=== PATIENT | male | born 1960 | race Caucasian/White ===

== ENCOUNTER 2019-03-17 09:50 | Observation (INO) | payer OTHER ==
[~2019-03-17] VITALS: Ht 180.3 cm; Wt 100.0 kg
[2019-03-17] MEDS ORDERED: SODIUM CHLORIDE 0.9% 1,000 ML IV ONE (09:55)
[2019-03-17] MEDS ORDERED: SODIUM CHLORIDE 0.9% 1,000ML IVBOLUS ONE (10:00)
[2019-03-17] MEDS ORDERED: SODIUM CHLORIDE FLUSH 10ML SYR IVF ONE (10:00)
[2019-03-17] MEDS ORDERED: AMLO10TA8 PO (10:03)
[2019-03-17] MEDS ORDERED: ATOR40TA78 PO (10:03)
[2019-03-17] MEDS ORDERED: HYDR-3343 PO (10:03)
[2019-03-17] MEDS ORDERED: FURO20TA3 PO (10:03)
[2019-03-17] MEDS ORDERED: VIT D PO (10:03)
[2019-03-17] MEDS ORDERED: LISI-167 PO (10:03)
--- NOTE | 2019-03-17 10:14 | NUR ---
pt [facility] from where he was diagnosed today with Flu A. pt experienced syncopal episode for approx 2-3 seconds at while ambulating to . pt was caught by staff and assisted to floor. no trauma noted. pt's sbp was found to be in the low 90s. upon ems arrival, pt's sbp was in the 60s. piv established and 4mg zofran and 1l ns administered with sbp recovery to high 80s. pt connected to all monitors upon arrival to [facility]. sbp low 90s. Dr. Rodriguez to bs for assessment and orders received. 1l ns and ivf started. lab to bs for draw. ekg complete. awaiting results. no needs expressed. call light within reach.
[2019-03-17 10:35] LABS: BASOPHILS # (AUTO) 0.02 x10^3/uL (0-0.1); BASOPHILS % (AUTO) 0 % (0-1); EOSINOPHILS # (AUTO) 0.09 x10^3/uL (0-0.4); EOSINOPHILS % (AUTO) 1 % (1-7); LYMPHOCYTES % (AUTO) 11 % (22-44); MD NO; MEAN CORPUSCULAR HEMOGLOBIN 30.6 pg (27.5-34.5); MEAN CORPUSCULAR HGB CONC 33.2 g/dL (33.2-36.2); MEAN PLATELET VOLUME 8.1 fL (7.4-10.4); MONOCYTES # (AUTO) 0.99 x10^3/uL (0.2-0.8); MONOCYTES % (AUTO) 12 % (2-9); NEUTROPHILS # (AUTO) 5.99 x10^3/uL (1.8-6.8); NEUTROPHILS % (AUTO) 75 % (42-75); PLATELET COUNT 247 x10^3/uL (130-400); RED BLOOD COUNT 4.42 x10^6/uL (4.38-5.82); RED CELL DISTRIBUTION WIDTH 13.4 % (9.4-14.8)
[2019-03-17 10:41] LABS: ALBUMIN 3.3 g/dL (3.4-5.0); ANION GAP 8 mmol/L (5-15); CALCIUM 8.1 mg/dL (8.5-10.1); CHLORIDE 109 mmol/L (98-107)
[2019-03-17 10:46] LABS: ALANINE AMINOTRANSFERASE 43 U/L (12-78); ALKALINE PHOSPHATASE 82 U/L (45-117); BILIRUBIN,TOTAL 0.5 mg/dL (0.2-1.0); CREATININE 2.13 mg/dL (0.7-1.3); TOTAL PROTEIN 6.9 g/dL (6.4-8.2); TROPONIN I < 0.015 ng/mL (0.000-0.045)
--- NOTE | 2019-03-17 10:52 | NUR ---
pt back from xr at this time. vss. warm blanket provided for comfort. no other needs expressed. call light within reach. awaiting results.
--- NOTE | 2019-03-17 11:17 | NUR ---
ALL RESULTS BACK AT THIS TIME. CHART UP FOR RECHECK.
--- NOTE | 2019-03-17 11:21 | NUR ---
PT RESTING IN ROOM. VS IMPROVING. DR. HUBBARD TO BS FOR ASSESSMENT. PLANT O ADMIT. AWAITING ROOM ASSIGNMENT.
[2019-03-17] MEDS ORDERED: LABETALOL 5MG/ML, 20ML IVPush PRN (12:00)
[2019-03-17] MEDS ORDERED: GUAIFENESIN/DM 200-20MG, 10ML UDC PO PRN (12:00)
[2019-03-17] MEDS ORDERED: ACETAMINOPHEN 325 MG TABLET PO PRN (12:00)
[2019-03-17] MEDS ORDERED: CHOLECALCIFEROL 5,000u TAB PO SCH (12:00)
[2019-03-17] MEDS ORDERED: ONDANSETRON ODT 4 MG PO PRN (12:00)
[2019-03-17] MEDS ORDERED: ONDANSETRON 2MG/ML, 2ML IVPush PRN (12:00)
[2019-03-17] MEDS ORDERED: TRAZODONE 50MG TABLET PO PRN (12:00)
[2019-03-17] MEDS ORDERED: BUTALB/APAP/CAFFEINE 50MG/325MG/40MG PO PRN ×2 (12:00)
[2019-03-17] MEDS ORDERED: POLYETHYLENE GLYCOL 17 GM PACKET PO PRN (12:00)
[2019-03-17] MEDS ORDERED: hydrALAzine 20 MG/ML, 1ML IVPush PRN (12:00)
--- NOTE | 2019-03-17 12:23 | NUR ---
PT RESTING IN ROOM. VSS. HOSPITALIST TO BS FOR ASSESSMENT. AWAITING FURTHER ORDERS.
[2019-03-17] MEDS ORDERED: OSELTAMIVIR 75 MG CAPSULE ONE (12:27)
[2019-03-17] MEDS: OSELTAMIVIR 75 MG CAPSULE PO SCH (12:49)
[2019-03-17] MEDS: LACTATED RINGERS 1,000 ML IV SCH ×2 (12:50→16:43)
--- NOTE | 2019-03-17 12:54 | NUR ---
PT MEDICATED PER MAR. VSS. PT DECLINING LUNCH TRAY AT THIS TIME. NO NEEDS EXPRESSED AT THIS TIME. AWAITING ROOM ASSIGNMENT.
--- NOTE | 2019-03-17 15:19 | NUR ---
ASSUMED CARE FOR THIS PT. REPORT CALLED TO FLOOR PT READY FOR TRANSPORT.
[2019-03-17 15:57] VITALS: BP 124/74
[2019-03-17 20:15] VITALS: BP 131/74
[2019-03-17] MEDS ORDERED: AMLODIPINE 5 MG TABLET PO SCH (21:00)
[2019-03-17] MEDS ORDERED: ATORVASTATIN 40 MG TABLET PO SCH (21:00)
[2019-03-17] MEDS ORDERED: LISINOPRIL 20 MG TABLET PO SCH (21:00)
[2019-03-18 03:47] VITALS: BP_SYST 121; BP_DIAS 65; BP_DIAS 68
[2019-03-18 05:05] LABS: ANION GAP 6 mmol/L (5-15); CALCIUM 8.4 mg/dL (8.5-10.1); CHLORIDE 109 mmol/L (98-107); CREATININE 1.38 mg/dL (0.7-1.3)
[2019-03-18 05:08] LABS: BASOPHILS # (AUTO) 0.04 x10^3/uL (0-0.1); BASOPHILS % (AUTO) 1 % (0-1); EOSINOPHILS # (AUTO) 0.13 x10^3/uL (0-0.4); EOSINOPHILS % (AUTO) 2 % (1-7); LYMPHOCYTES # (AUTO) 1.58 x10^3/uL (1-3.4); LYMPHOCYTES % (AUTO) 27 % (22-44); MD NO; MEAN CORPUSCULAR HEMOGLOBIN 30.4 pg (27.5-34.5); MEAN CORPUSCULAR HGB CONC 33.1 g/dL (33.2-36.2); MEAN PLATELET VOLUME 8.1 fL (7.4-10.4); MONOCYTES # (AUTO) 0.92 x10^3/uL (0.2-0.8); MONOCYTES % (AUTO) 16 % (2-9); NEUTROPHILS # (AUTO) 3.21 x10^3/uL (1.8-6.8); NEUTROPHILS % (AUTO) 55 % (42-75); PLATELET COUNT 221 x10^3/uL (130-400); RED BLOOD COUNT 4.17 x10^6/uL (4.38-5.82); RED CELL DISTRIBUTION WIDTH 13.7 % (9.4-14.8)
[2019-03-18 07:40] VITALS: BP 115/73
[2019-03-18] MEDS ORDERED: FUROSEMIDE 40 MG TABLET PO SCH (09:00)
[2019-03-18] MEDS: OSELTAMIVIR 75 MG CAPSULE PO SCH (09:54)
[2019-03-18 13:08] VITALS: BP 114/67
[2019-03-18] MEDS ORDERED: GUAIFENESIN 200 MG TABLET PO PRN (15:00)
[2019-03-18] MEDS ORDERED: SODIUM CHLORIDE 0.9% 1,000 ML IV SCH (15:00)
[2019-03-18 17:01] VITALS: BP 133/70
[2019-03-18 17:06] VITALS: BP 129/68
[2019-03-18 17:11] VITALS: BP 124/69
== END 2019-03-18 20:00 | disposition left against medical advice (07) ==
LOC: ED 11:46 → EDIP 11:50 → INTOOBSV 11:50 → 3N 15:52
PROVIDERS: ADMIT Family Medicine; ATTEND Hospitalist
DX: R55 Syncope and collapse (principal); J96.01 Acute respiratory failure with hypoxia; E78.5 Hyperlipidemia, unspecified; I12.9 Hypertensive chronic kidney disease with stage 1 through stage 4 chronic kidney disease, or unspecified chronic kidney disease; J10.1 Influenza due to other identified influenza virus with other respiratory manifestations; N17.9 Acute kidney failure, unspecified; N18.9 Chronic kidney disease, unspecified; I95.9 Hypotension, unspecified; E83.51 Hypocalcemia; E87.8 Other disorders of electrolyte and fluid balance, not elsewhere classified; E46 Unspecified protein-calorie malnutrition; Z79.899 Other long term (current) drug therapy
CPT/HCPCS: 36415; 71046; 80048; 80053; 83735; 84100; 84484; 85025; 93005; 96360; 96361; 99284; G0378; J7030; J7120

== ENCOUNTER 2020-08-18 13:16 | Emergency (ER) | payer OTHER ==
[~2020-08-18] VITALS: Ht 180.3 cm; Wt 100.0 kg
[~2020-08-18 13:16] MED LIST: AMLO-211 PO; ATOR40TA78 PO; FURO20TA3 PO; HYDR-3343 PO; LISI-167 PO; VIT D PO
--- NOTE | 2020-08-18 13:35 | NUR ---
PT CLOTHING REMOVED AND PT IN HOSPITAL GOWN. PT PLACED ON VITALS MONITORS.
[2020-08-18] MEDS ORDERED: MORPHINE SULFATE 4 MG/ML, 1ML ONE ×2 (14:29→15:31)
[2020-08-18] MEDS: MORPHINE SULFATE 4 MG/ML, 1ML IVPush PRN ×2 (14:32→15:34)
--- NOTE | 2020-08-18 14:40 | NUR ---
PT MEDICATED FOR PAIN PER EMAR. PT HERE, WILL BE A SAFE RIDE HOME FOR PT PT IS AWARE, HE CAN NOT DRIVE HOME AFTER MEDS.
[2020-08-18 15:00] VITALS: BP 118/74
[2020-08-18] MEDS ORDERED: DIAZEPAM 5 MG/ML, 2ML ONE (15:13)
[2020-08-18] MEDS ORDERED: DIAZEPAM 5 MG/ML, 2ML IV ONE (15:30)
--- NOTE | 2020-08-18 17:31 | NUR ---
PT HERE TO WHEEL PT OUT TO DC. PT ABLE TO REST CALMLY IN BED, STATED HE IS FEELING BETTER AFTER ORDERED MEDS.
== END 2020-08-18 17:31 | disposition home or self-care (01) ==
LOC: ED 14:00
DX: S32.010A Wedge compression fracture of first lumbar vertebra, initial encounter for closed fracture (principal); R11.0 Nausea; I11.0 Hypertensive heart disease with heart failure; I12.9 Hypertensive chronic kidney disease with stage 1 through stage 4 chronic kidney disease, or unspecified chronic kidney disease; N18.9 Chronic kidney disease, unspecified; W18.30XA Fall on same level, unspecified, initial encounter; Y93.89 Activity, other specified; Y92.009 Unspecified place in unspecified non-institutional (private) residence as the place of occurrence of the external cause; Y99.8 Other external cause status
CPT/HCPCS: 72110; 72220; 96374; 96375; 96376; 99284; J2270; J3360